=== PATIENT | female | born 1945 | race Caucasian/White ===

== ENCOUNTER 2020-04-15 15:09 | Outpatient (CLI) | payer MEDICARE | END 2020-04-15 15:10 | disposition EMS.NT | LOC: EMS 15:09 | PROVIDERS: ATTEND Surgery | DX: Z04.3 Encounter for examination and observation following other accident (principal) ==

== ENCOUNTER 2023-03-03 16:04 | Outpatient (CLI) | payer MEDICARE, OTHER ==
--- NOTE | 2023-03-04 09:44 | Ultrasound Report ---
PROCEDURE: Pelvic Complete INDICATIONS: PELVIC PAIN TECHNIQUE: Real-time transabdominal scanning was performed of the pelvic organs, with image documentation. Susan ent declined transvaginal imaging. COMPARISON: None available. FINDINGS: Uterus: Prior hysterectomy. Ovaries: The right ovary measures 3.4 x 2.1 x 2.7 cm, with a calculated ovarian volume of 10.2 cc. The left ovary measures 2. 0.8 x 1.6 cm, with a calculated ovarian volume of 1.4 cc. Simple right ova vasu cyst measuring up to 2.2 cm Other: No free pelvic fluid. IMPRESSION: Simple right ovarian cyst measuring up to 2.2 cm. No source for pelvic pain identified. If pain persist with conservative management, consider CT or MRI for further assessment. Reviewed by: AMRIT Hobson on 03/04/2023 9:43 AM PDT Approved by: Zion Thompson MD on 03/04/2023 9:43 AM PDT Station ID: [id number]
== END 2023-03-03 16:05 | disposition home or self-care (01) ==
LOC: DI 16:04
PROVIDERS: ATTEND Internal Medicine
DX: R10.2 Pelvic and perineal pain (principal); N83.291 Other ovarian cyst, right side

== ENCOUNTER 2023-09-09 13:09 | Outpatient (CLI) | payer MEDICARE, OTHER ==
--- NOTE | 2023-09-10 08:34 | Mammography Report ---
BILATERAL DIGITAL SCREENING MAMMOGRAM 3D/2D WITH EXAGGERATED CC: 09/09/2023 CLINICAL: Routine screening. Comparison is made to exams dated: 03/26/2020 mammogram and 03/21/2019 mammogram - [facility]. Both breasts are heterogeneously dense, which may obscure small masses (category c / 51-75% glandular tissue). No significant masses, calcifications, or other findings are seen in either breast. There has been no significant interval change. IMPRESSION: NEGATIVE There is no mammographic evidence of malignancy. A 1 year screening mammogram is recommended. Based on the Tyrer Cuzick model (a risk assessment model) the patient's lifetime risk is 3.0% and her 10 year risk is 0.0%. According to the ACR, ACS, and NCCN guidelines, an annual breast MRI exam darya g with mammogram is recommended if the patient's lifetime risk is 20% or greater. This exam was interpreted at Station ID: [id number]. NOTE: For mammograms, a report in lay terms will be sent to the patient. Approximately 15% of breast malignancies will not be visualized mammographically. In the management of a palpable breast mass, a negative mammogram must not discourage biopsy of a clinically suspicious lesion. Electronically Signed By: Bhanu [email or web address]/[email or web address]:09/09/2023 21:17:58 ACR BI-RADS Category 1: Negative 3341F PARENCHYMAL PATTERN: (D) - The breast(s) demonstrate(s) heterogeneously dense fibroglandular louie guerrero. BI-RADS CATEGORY: (1) - 1 RECOMMENDATION: (ANNUAL) - Recommend routine annual screening mammography. [id number] 1 year screening LATERALITY: (B)
== END 2023-09-09 13:10 | disposition home or self-care (01) ==
LOC: DI.S 13:09
DX: Z12.31 Encounter for screening mammogram for malignant neoplasm of breast (principal); R92.333 Mammographic heterogeneous density, bilateral breasts